=== PATIENT | male | born 1980 | race Caucasian/White ===

== ENCOUNTER 2017-07-06 07:43 | Emergency (ER) | payer OTHER ==
[~2017-07-06] VITALS: Ht 180.3 cm; Wt 79.0 kg
[2017-07-06 07:52] VITALS: BP 140/69; PULSE 74; RESP 16; TEMP 97.7; O2SAT 100
--- NOTE | 2017-07-06 09:31 | PD ---
HPI . 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 He was inadvertently bitten by a working dog yesterday in his scrotum. He was seen at urgent care yesterday and placed on antibiotics. His tetanus was updated. The dog's rabies vaccinations are current so axis is not needed. He was sent to us for an ultrasound of his scrotum. The patient is complaining with some pain but reports that it is mild and he does not need anything for the pain at this point. His pain is exacerbated by something or touching his scrotum. PFSH Past Medical History Medical other: Yes (WISDOME TEETH) Influenza Vaccination: No Past Surgical History Oral Surgery: Yes (L KNEE) Social History Alcohol Use: No Tobacco Use: No Substance Use: No Allergies-Medications (Allergen,Severity, Reaction): Coded Allergies: No Known Allergies (Unverified , 07/06/17) Review of Systems Except as stated in HPI: all other systems reviewed are Neg Physical Exam Narrative GENERAL: Awake and alert and in no acute distress. SKIN: Warm and dry. HEAD: Normocephalic/atraumatic. EYES: Pupils are equal. Extraocular movements are intact. NECK: Normal range of motion. CARDIOVASCULAR: Regular rate and rhythm. RESPIRATORY: Nonlabored respirations. : Normal uncircumcised male. He has a contusion on the left base of his penis and extending into the left scrotum. It is in the pattern of a bite gypsy. The skin is intact. MUSCULOSKELETAL: Atraumatic. NEUROLOGICAL: Nonfocal. PSYCHIATRIC: Appropriate mood and affect. Data Data Last Documented VS Vital Signs Date Time Temp Pulse Resp B/P (MAP) Pulse Ox O2 Delivery O2 Flow Rate FiO2 07/06/17 07:52 97.7 74 16 140/69 (92) 100 Orders Orders Us Testicles W Doppler (07/06/17 09:06) [facility] Medical Decision Making Medical Screen Exam Complete: Yes Emergency Medical Condition: Yes Differential Diagnosis Differential diagnosis includes but is not limited to soft tissue injury, testicular injury, vascular injury, spermatic cord injury Narrative Course This patient presents for further evaluation of a left scrotal injury. He was bitten by a working dog yesterday. There is a contusion present. There is no injury to the skin. Ultrasound has been ordered. US: 1. The testicles are intact with normal symmetric blood flow. 2. Small cystic structure in the right epididymis. 3. Small bilateral hydroceles. 4. Small left varicocele No evidence of injury to the internal structures of the scrotal sac. He will be discharged home. He already has appropriate prescriptions. Diagnosis Primary Impression: Contusion of scrotum Qualified Codes: S30.22XA - Contusion of scrotum and testes, initial encounter Patient Instructions: Contusion in Adults (DC), General Instructions Disposition: 01 DISCHARGE HOME Condition: Stable Elisha Cabral MD Jul 06, 2017 09:31
--- NOTE | 2017-07-06 10:38 | RADRPT ---
EXAM DATE/TIME: 07/06/2017 09:54 [place] COMPARISON: No previous studies available for comparison. INDICATIONS : Left testicle pain. Dog bite to scrotum yesterday. MEDICAL HISTORY : Testicle pain. SURGICAL HISTORY : Left knee surgery. ENCOUNTER: Initial ACUITY: 1 day PAIN SCORE: 5/10 LOCATION: Bilateral scrotum. MEASUREMENTS: RIGHT TESTICLE: 4.6 x 2.9 x 2.5cm LEFT TESTICLE: 3.9 x 2.7 x 2.5 cm FINDINGS: RIGHT TESTICLE: Homogeneous echotexture without intra or extratesticular mass. Blood flow is symmetric and within no rmal limits. No varicocele there is a small hydrocele. There is a small cystic structure in the head of the epididymis.. LEFT TESTICLE: Homogeneous echotexture without intra or extratesticular mass. Blood flow is symmetric and within no rmal limits. There is a small hydrocele. There is a small varicocele. Epididymis is within normal carreon its. SCROTUM: Within normal limits. CONCLUSION: 1. The testicles are intact with normal symmetric blood flow. 2. Small cystic structure in the right epididymis. 3. Small bilateral hydroceles. 4. Small left varicocele. Catrachito Correia MD on July 06, 2017 at 10:30 Board Certified Radiologist. This report was verified electronically.
== END 2017-07-06 11:07 | disposition home or self-care (01) ==
LOC: PHEFT 07:43
DX: S30.22XA Contusion of scrotum and testes, initial encounter (principal); N43.3 Hydrocele, unspecified; I86.1 Scrotal varices; W54.0XXA Bitten by dog, initial encounter; Y99.0 Civilian activity done for income or pay
CPT/HCPCS: 76870; 93975; 99284